=== PATIENT | male | born 1960 ===

== ENCOUNTER → 2019-11-26 09:11 | Outpatient (CLI) | payer OTHER, SELFPAY ==
[2019-11-26 14:48] LABS: Alanine Aminotransferase 31 IU/L (<50); Albumin 5.4 g/dL (3.5-5.0); Albumin Globulin Ratio 1.4 (1.0-2.8); Alkaline Phosphatase 73 U/L (38-126); Aspartate Aminotransferase 63 IU/L (17-59); BUN Creatinine Ratio 10.6 (6-22); Bilirubin Total 0.5 mg/dL (0.2-1.3); Blood Urea Nitrogen 23 mg/dL (9-20); Calcium 10.2 mg/dL (8.4-10.2); Carbon Dioxide 19 mmol/L (22-32); Chloride 108 mmol/L (98-107); Estimated Glomerular Filt Rate 31.2 mL/min (>60); Glucose 97 mg/dL (80-110); HEMOLYSIS < 15 (0-50); Potassium 4.7 mmol/L (3.4-5.1); Sodium 141 mmol/L (137-145); Total Protein 9.4 g/dL (6.3-8.2)
[2019-11-26 14:51] LABS: Hemoglobin A1C% w Est Avg Glu 5.7 % (4.0-6.0)
== END ==
PROVIDERS: PCP Internal Medicine; Referring Provider Internal Medicine; Visit Provider Internal Medicine
DX: N18.9 Chronic kidney disease, unspecified (principal); E78.2 Mixed hyperlipidemia; I10 Essential (primary) hypertension; E74.39 Other disorders of intestinal carbohydrate absorption
CPT/HCPCS: 36415; 80053; 83036

== ENCOUNTER → 2021-05-07 08:55 | Outpatient (CLI) | payer OTHER, SELFPAY ==
[2021-05-07 11:30] LABS: COVID19 -Nasal RAPID Negative (Negative)
== END ==
PROVIDERS: PCP Internal Medicine; Visit Provider Physician Assistant
DX: Z01.812 Encounter for preprocedural laboratory examination (principal); Z20.822 Contact with and (suspected) exposure to COVID-19
CPT/HCPCS: 87635

== ENCOUNTER 2021-05-08 08:00 | Day surgery (SDC) | payer OTHER, SELFPAY ==
--- NOTE | 2021-05-08 | PATH_ITS ---
[facility] Accession Number: [id number] . 01 Material submitted: . colon - SIGMOID CLON POLYPS X2 . 01 Clinical history: . DX COLONOSCOPY . 02 Diagnosis: Sigmoid Colon Polyps, Biopsies: Tubular adenoma x2. FOR[facility]LY [facility], [facility] 05/10/2021 1650 Local . 02 Electronically signed: . Aguilar Costa MD, PhD, Pathologist NPI- [id number] . 01 Gross description: . SIGMOID CLON POLYPS X2: Received in formalin are multiple fragment(s) of panda, soft tissue measuring 0.5 x 0.4 x 0.2 cm in aggregate submitted entirely in 1 cassette(s) /SUDEEP 05/09/2021 0147 Local . 02 Pathologist provided ICD-10: D12.5 . 02 CPT . 332356 Performed at: 01 [facility] [address] [id number] [address] MD Phone: [phone] Performed at: 02 [facility] [address] [place], [place] [id number] MD Twyla Coelho MD Phone: [phone]
[2021-05-08 08:37] VITALS: BP 142/91; PULSE 87; RESP 20; TEMP 36.7; O2SAT 97; BMI 29.9
[2021-05-08] MEDS: SODIUM CHLORIDE 0.9% 1,000 ML 100 ML IV (08:46)
--- NOTE | 2021-05-08 09:48 | PM.HP.1 ---
History of Present Illness History of Present Illness Date Patient Seen: 05/08/21 Time Patient Seen: 09:48 Chief complaint: DX COLONOSCOPY Narrative: Colon polyp history. Patient History Family & Social History Family history unavailable: Yes Social History: household members spouse Tobacco & Substance use: Smoking Status Former smoker alcohol intake current alcohol intake frequency a few times a month Substance Use Type does not use Meds Home Medications and Allergies Home Medications Medication Instructions Recorded Confirmed Type aspirin 81 mg tablet 81 mg PO DAILY 05/08/21 05/08/21 History bepotastine besilate 1.5 % eye See Rx Instructions .ROUTE .COMPLEX 05/08/21 05/08/21 History drops (Bepreve) carvedilol 12.5 mg tablet 12.5 mg PO BID 05/08/21 05/08/21 History ezetimibe 10 mg tablet 10 mg PO DAILY 05/08/21 05/08/21 History gemfibrozil 600 mg tablet 600 mg PO BID 05/08/21 05/08/21 History lisinopril 5 mg tablet 5 mg PO DAILY 05/08/21 05/08/21 History pantoprazole 40 mg tablet,delayed 40 mg PO DAILY 05/08/21 05/08/21 History release rosuvastatin 40 mg tablet 40 mg PO DAILY 05/08/21 05/08/21 History vitamin A-vitamin C-vit E-min 1 tab PO DAILY 05/08/21 05/08/21 History tablet Allergies Allergy/AdvReac Type Severity Reaction Status Date / Time cortisone Allergy Intermediate Verified 05/08/21 08:27 Sulfa (Sulfonamide Allergy Intermediate Verified 05/08/21 08:26 Antibiotics) metoprolol Allergy Verified 05/08/21 08:27 Review of Systems Review of Systems ROS: Yes All systems reviewed with the patient and are negative except as otherwise documented Exam Vital Signs (past 8 hours): - 05/08/21 08:37 Temperature 98.1 F Pulse Rate 87 Respiratory Rate 20 Blood Pressure 142/91 H Pulse Oximetry 97 Oxygen Delivery Method Room Air Const General: cooperative and comfortable Orientation: alert HENMT Head: normocephalic Ears: external ears normal Nose: external nose normal Face and sinus: normal facial exam Mouth: oral mucosae normal Eyes General: appearance normal, both eyes and all related structures Neck Neck: normal visual inspection Chest Chest: normal inspection of the chest Resp Effort & Inspection: normal respiratory effort Auscultation: clear to auscultation bilaterally Cardio Rate: regular rate Rhythm: regular rhythm Heart Sounds: no murmurs GI Inspection: normal to inspection Palpation: soft and No tender Auscultation: normal bowel sounds Skin General: no rashes or lesions noted and No jaundice Neuro General: patient alert and moves all extremities Cognition: normal cognition Speech: speech normal Extrem General: no pedal edema Psych Appearance: grossly normal Assessment & Plan Assessment & Plan narrative: 61-year-old male with personal history of colon polyps. Colonoscopy is planned for today. Time Spent With Patient Critical Care time: I spent a total of [] minutes of critical care time on this patient's care today; this time is exclusive of procedural time.
--- NOTE | 2021-05-08 09:49 | PM.PREOP ---
Pre-operative Note COVID-19 COVID-19 status: Negative Result date/Date tested (Pos, Neg/Pending): 05/07/21 Interval Note History & Physical reviewed/Exam performed by Physician: Yes Changes to H&P: No ASA Class (for procedural sedation): II
--- NOTE | 2021-05-08 10:19 | PM.OP.COLON ---
Operative Date/Time/Diagnoses Date of procedure: 05/08/21 Time of procedure: :19 Pre-op diagnosis: Colon polyp history Post-op diagnosis: same Procedure & Clinicians Study performed: Colonoscopy with hot and cold snare polypectomy Same procedure as scheduled: Yes Indications: Colon polyp history Surgeon: Ronny Sampson Procedure Notes SCOAP/Timeout: Done Procedure in detail: After the risks and benefits were explained, written and verbal informed consent was obtained. The patient was brought into the procedure room and placed into the left lateral decubitus position. Please see nurse computer security manager notes for sedation details. Digital rectal examination was accomplished. The scope was introduced into the patient and advanced under direct visualization to the cecum as identified by the appendiceal orifice and ileocecal valve. The scope was slowly withdrawn to carefully examine the mucosa for any defects or lesions. Comprehensive imaging was accomplished throughout the rectum including the dentate line. The colon was decompressed, the scope was then removed from the patient who tolerated the procedure well. Bowel prep fair with copious irrigation rendered adequate Adult colonoscope Scope withdrawal time: 17 minutes Sedation minutes: 23 Complications: none Impression: Extensive diverticulosis was seen in the sigmoid. Just above the rectosigmoid was a tattoo. No residual polyp identified in this location. In the more proximal sigmoid there were a couple of small polyps 1 removed with cold snare in 1 with hot snare. These ranged in size from 5-6 mm and were sessile. No additional pathology was appreciated throughout. Endoscopic diagnosis 1. Diverticulosis 2. Colon polyps Post-procedure Recommendations: Colonoscopy in 5 years Plan for aftercare: 1. Await histopathology 2. Repeat colonoscopy 5 years. Disposition: PACU
[2021-05-08 10:21] VITALS: BP 119/87; PULSE 69; RESP 20; TEMP 36.1; O2SAT 95
[2021-05-08 10:33] VITALS: BP 127/94; PULSE 69; RESP 14; O2SAT 96
[2021-05-08 10:38] VITALS: BP 128/89; PULSE 69; RESP 16; TEMP 36.2; O2SAT 98
== END 2021-05-08 10:48 | disposition home or self-care (01) ==
PROVIDERS: PCP Internal Medicine Gastroenterology; Referring Provider Internal Medicine Gastroenterology; Visit Provider Internal Medicine Gastroenterology
PROC: 0DJD8ZZ Inspection of Lower Intestinal Tract, Via Natural or Artificial Opening Endoscopic (ICD-10-PCS; CPT 45378; principal; 2021-05-08 10:00)
DX: Z12.11 Encounter for screening for malignant neoplasm of colon (principal); Z86.010 Personal history of colon polyps; K57.30 Diverticulosis of large intestine without perforation or abscess without bleeding; D12.5 Benign neoplasm of sigmoid colon
CPT/HCPCS: 44394; J2704